=== PATIENT | male | born 1970 | race Caucasian/White ===

== ENCOUNTER 2022-08-09 18:26 | Emergency (ER) | payer OTHER, SELFPAY ==
[2022-08-09 18:38] VITALS: BP 131/80; PULSE 65; RESP 16; TEMP 36.7; O2SAT 97
--- NOTE | 2022-08-09 19:22 | ED.URI ---
HPI - URI/Sore Throat General Chief Complaint: Upper Respiratory Infection Stated Complaint: Swollen Gland Source: patient and RN notes reviewed History of Present Illness HPI Narrative: 52 yo M presents to ED with complaints of sore throat, mostly on right side. Pt states this pain is causing his right ear to hurt. Pt states this has been going on intermittently for the last couple weeks. Pt reports pressure in his sinuses and states he can feel the pressure move when he changes positions while lying down. Denies any fevers, chills, N/V/D, trouble swallowing or breathing, chest pain, or SOB. Related Data Home Medications Medication Instructions Recorded Confirmed amlodipine 5 mg tablet 5 mg PO DAILY 08/09/22 08/09/22 aspirin 81 mg capsule 81 mg PO DAILY 08/09/22 08/09/22 atenolol 50 mg-chlorthalidone 25 1 tablet PO DAILY 08/09/22 08/09/22 mg tablet glipizide 5 mg tablet, extended 5 mg PO DAILY 08/09/22 08/09/22 release 24 hr lisinopril 40 mg tablet 40 mg PO DAILY 08/09/22 08/09/22 lovastatin 20 mg tablet 20 mg PO DAILY 08/09/22 08/09/22 metformin 850 mg tablet 850 mg PO BID 08/09/22 08/09/22 Allergies Allergy/AdvReac Type Severity Reaction Status Date / Time Penicillins Allergy Rash Verified 08/09/22 19:18 piperacillin [From Zosyn] Allergy Rash Verified 08/09/22 19:18 tazobactam [From Zosyn] Allergy Rash Verified 08/09/22 19:18 Review of Systems Review of Systems: CONSTITUTIONAL: Denies fever, chills, or sweats. EYES: Denies visual changes, redness, or discharge. ENT: Reports sore throat and, right ear pain it is pressure. CARDIOVASCULAR: Denies chest pain, palpitations, or edema. RESPIRATORY: Denies cough or dyspnea. GASTROINTESTINAL: Denies abdominal pain, nausea, vomiting, or diarrhea. GENITOURINARY: Denies dysuria or hematuria. SKIN: Denies rash or itching. MUSCULOSKELETAL: Denies back pain, joint pain, or myalgia. NEUROLOGIC: Denies headache, numbness, or weakness. PMFSH Comments At the time of my signature, I reviewed and agree with the nursing past medical, surgical, social, and family history. There is no relevant family history pertinent to the patient complaint. Exam Narrative: GENERAL: This is a well-nourished, well-developed patient, in no apparent distress. HEAD: normocephalic, atraumatic. EYES: PERRL. Sclera clear/white. Vision is grossly intact. EARS: External ears normal, auditory canals clear and without drainage, TMs normal without perforation. Hearing grossly intact. NOSE: External nose normal with no obvious nasal discharge, nares without redness, no rhinorrhea. THROAT: Mucous membranes moist, posterior pharynx clear. Uvula midline. NECK: Right sided lymphadenopathy. CARDIOVASCULAR: Regular rate and rhythm without murmurs, gallops, or rubs. RESPIRATORY: Clear to auscultation. Breath sounds equal bilaterally. No wheezes, rales, or rhonchi. No stridor. GASTROINTESTINAL: Abdomen soft, non-tender, nondistended. Bowel sounds are active. No hepato-splenomegaly, or palpable masses. No guarding. SKIN: warm, intact with no suspicious lesions or rash, good texture and turgor. NEURO: awake, alert, and oriented to person, place and time. There were no obvious focal neurologic abnormalities. Course Course Level of Care: Express Care Visit Vital Signs Vital signs: Vital Signs Temperature 98.0 F 08/09/22 18:38 Pulse Rate 65 08/09/22 18:38 Respiratory Rate 16 08/09/22 18:38 Blood Pressure 131/80 08/09/22 18:38 Pulse Oximetry 97 08/09/22 18:38 Oxygen Delivery Room Air 08/09/22 18:38 Temperature 98.0 F 08/09/22 18:38 Pulse Rate 65 08/09/22 18:38 Respiratory Rate 16 08/09/22 18:38 Blood Pressure 131/80 08/09/22 18:38 Pulse Oximetry 97 08/09/22 18:38 Oxygen Delivery Room Air 08/09/22 18:38 Reviewed MDM - URI/Sore Throat MDM Narrative Medical decision making narrative: Drink plenty of water and get plenty of rest. If you develop any new or w
== END 2022-08-09 19:30 | disposition home or self-care (01) ==
PROVIDERS: Emergency Provider Nurse Practitioner Family; PCP Physician Assistant
DX: J03.90 Acute tonsillitis, unspecified (principal); I48.91 Unspecified atrial fibrillation; E78.00 Pure hypercholesterolemia, unspecified; I10 Essential (primary) hypertension; E11.9 Type 2 diabetes mellitus without complications
CPT/HCPCS: 87081; 87880; 99213; G0463

== ENCOUNTER 2023-12-29 08:22 | Emergency (ER) | payer BC, SELFPAY ==
[2023-12-29 08:34] VITALS: BP 125/72; PULSE 66; RESP 18; TEMP 36.7; O2SAT 98
--- NOTE | 2023-12-29 08:34 | ED.GENADULT ---
HPI - General Adult General Chief complaint: Headache Stated complaint: Migraine/head pain Time Seen by Provider: 12/29/23 08:27 Source: patient, RN notes reviewed and old records reviewed Mode of arrival: ambulatory Limitations: no limitations History of Present Illness HPI narrative: Patient presents to [facility] with complaints of headache x1 week, intractable. He denies any injury or trauma. There is a swollen area to the back of the head, warm to the touch. He reports that this became sensitive last night. He denies any injury or trauma. He does state that he had surgery for an abscess to that same site that is now enlarged approximately 10 years ago. He is very slow to answer questions. States that he has never had headache like this in his life. Affirms history of diabetes and hypertension. Reports compliance with medication. Related Data Home Medications Medication Instructions Recorded Confirmed amlodipine 5 mg tablet 5 mg PO DAILY 08/09/22 12/29/23 aspirin 81 mg capsule 81 mg PO DAILY 08/09/22 12/29/23 atenolol 50 mg-chlorthalidone 25 1 tablet PO DAILY 08/09/22 12/29/23 mg tablet glipizide 5 mg tablet, extended 5 mg PO DAILY 08/09/22 12/29/23 release 24 hr lisinopril 40 mg tablet 40 mg PO DAILY 08/09/22 12/29/23 lovastatin 20 mg tablet 20 mg PO DAILY 08/09/22 12/29/23 metformin 850 mg tablet 850 mg PO BID 08/09/22 12/29/23 Allergies Allergy/AdvReac Type Severity Reaction Status Date / Time Penicillins Allergy Rash Verified 12/29/23 08:34 piperacillin [From Zosyn] Allergy Rash Verified 12/29/23 08:34 tazobactam [From Zosyn] Allergy Rash Verified 12/29/23 08:34 Review of Systems Review of Systems: All systems reviewed & are unremarkable except as noted in HPI and below Constitutional: Constitutional: Reports no additional constitutional complaints ENT: Reports system reviewed and no additional complaints, except as documented Cardiovascular: Cardiovascular: Reports no additional cardiovascular complaints Respiratory: Respiratory: Reports no additional respiratory complaints Gastrointestinal: Gastrointestinal: Reports no additional gastrointestinal complaints Integumentary/Breasts: Comments: warmth and tenderness to back of scalp Neurologic: Reports dizziness, Reports headache(s) and Reports lack of coordination PMFSH Comments At the time of my signature, I reviewed and agree with the nursing past medical, surgical, social, and family history. There is no relevant family history pertinent to the patient complaint. Exam Const: General: cooperative, no acute distress, alert, awake, ill appearing, tired appearing, uncomfortable and other ( slow to respond to answering questions, but able to answer them appropriat) Orientation/consciousness: oriented to person, oriented to place and oriented to time HENMT: Head: scalp tenderness Head images: 1. erythema. tenderness, warmth, and induration Neck: Neck images: 1. erythema, warmth, tenderness and induration. unable to look down secondary to pain and swelling Resp: Effort & Inspection: normal respiratory effort and able to speak in complete sentences Auscultation: clear to auscultation bilaterally, no crackles, no rales, no rhonchi and no wheezes Cardio: Palpation: normal PMI Rate: regular rate Rhythm: regular rhythm Heart sounds: S1 normal heart sound present and S2 normal heart sound present Neuro: General: oriented to person, oriented to place and oriented to time Cranial nerves: Yes CN's II-XII intact bilaterally Speech: Other speech findings present (Neuro) ( slow to respond to questions) Gait exam (Neuro): Staggering gait present Psych: Appearance: grossly normal Thought process: Normal thought process present Insight: Good insight present (Psych) Judgement: Good judgement present (Psych) Course Course Emergency Course: patient to emergency room, [facility], via private car. He signed AMA form, as
[2023-12-29 08:35] VITALS: BP 125/72; PULSE 66; RESP 18; TEMP 36.7; O2SAT 98
[2023-12-29 08:42] LABS: Glucose Point of Care 214 mg/dl (65-105)
== END 2023-12-29 08:53 | disposition short-term general hospital (02) ==
PROVIDERS: Emergency Provider Nurse Practitioner Family; PCP Physician Assistant
DX: L02.811 Cutaneous abscess of head [any part, except face] (principal); L02.11 Cutaneous abscess of neck; E11.9 Type 2 diabetes mellitus without complications; I10 Essential (primary) hypertension; I48.91 Unspecified atrial fibrillation; E78.00 Pure hypercholesterolemia, unspecified; Z79.82 Long term (current) use of aspirin
CPT/HCPCS: 82948; 99213; G0463

== ENCOUNTER 2024-05-21 11:00 | Emergency (ER) | payer OTHER, BC, SELFPAY ==
[2024-05-21 11:05] VITALS: BP 112/72; PULSE 62; RESP 16; TEMP 36.9; O2SAT 99
--- NOTE | 2024-05-21 11:40 | ED.BACK ---
HPI - Back Pain/Injury General Chief Complaint: Back Pain/Injury Stated Complaint: WC/ muscle spasms back Time Seen by Provider: 05/21/24 11:22 Source: patient and RN notes reviewed Mode of arrival: ambulatory Limitations: no limitations History of Present Illness HPI Narrative: Patient presents today complaining of bilateral lower back pain and right-sided mid back pain just under the scapula. Pain has been present for 4 days. 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 The seats in his loaner truck, he reports, are very worn and bounce significantly more than his normal truck, when riding. He road in this lunar truck for 1 week And has been it back in his own truck for the past 2 days. He believes that this significant bouncing in the [employer] truck has led to his back pain. He denies radiation of his pain. Denies numbness or tingling in the extremities. Denies loss of bowel or bladder control. He has not tried any [id number] treatment prior to arrival. Currently rates his pain 5/10. Related Data Home Medications Medication Instructions Recorded Confirmed amlodipine 5 mg tablet 5 mg PO DAILY 08/09/22 05/21/24 aspirin 81 mg capsule 81 mg PO DAILY 08/09/22 05/21/24 atenolol 50 mg-chlorthalidone 25 1 tablet PO DAILY 08/09/22 05/21/24 mg tablet glipizide 5 mg tablet, extended 5 mg PO DAILY 08/09/22 05/21/24 release 24 hr lisinopril 40 mg tablet 40 mg PO DAILY 08/09/22 05/21/24 lovastatin 20 mg tablet 20 mg PO DAILY 08/09/22 05/21/24 metformin 1,000 mg tablet 1,000 mg PO BID 05/21/24 05/21/24 Allergies Allergy/AdvReac Type Severity Reaction Status Date / Time Penicillins Allergy Rash Verified 12/29/23 08:34 piperacillin [From Zosyn] Allergy Rash Verified 12/29/23 08:34 tazobactam [From Zosyn] Allergy Rash Verified 12/29/23 08:34 Review of Systems Review of Systems: CONSTITUTIONAL: Denies body aches, fever, chills, or sweats. EYES: Denies visual changes, redness, or discharge. ENT: Denies rhinorrhea, congestion, sore throat, or otalgia. CARDIOVASCULAR: Denies chest pain, palpitations, or edema. RESPIRATORY: Denies cough or dyspnea. GASTROINTESTINAL: Denies abdominal pain, nausea, vomiting, or diarrhea. GENITOURINARY: Denies dysuria or hematuria. SKIN: Denies rash, itching, or wounds. MUSCULOSKELETAL: Denies joint pain, or myalgia.+ back pain NEUROLOGIC: Denies headache, numbness, tingling, or weakness. PSYCH: Denies depression or anxiety. [facility] Past Medical History Medical History (Updated 05/21/24 @ 13:52 by Dee Stephens, [employer], ) Diabetes High cholesterol Hypertension Comments At time of signature, I have reviewed and agree with nursing past medical, surgical, social and family history unless otherwise noted. Please see nursing chart for further information. There is no relevant family history pertinent to the presenting complaint Exam Narrative: GENERAL: Well-appearing, well-nourished, and in no acute distress. HEAD: Normocephalic, atraumatic. EYES: EOMI. No redness or drainage. Conjunctivae normal. ENT: Mucous membranes pink and moist. NECK: Normal AROM. CHEST: No respiratory distress. MUSCULOSKELETAL: No bony tenderness of the thoracic or lumbar spine. Bilateral lower lumbar paraspinal muscle tenderness that does not extend to the SI joints. Palpable spasm noted on the left. Patient also has tenderness to the right midthoracic paraspinal muscles, just under the scapula. Some mild pain increased to this area with deep breath. Distal sensation intact in all 4 extremities. Capillary refill normal. Pedal and radial pulses normal. Bilateral upper and lower extremity strength 5/5. EXTREMITIES: Normal range of motion. No edema. SKIN: Warm, dry, no rash. Capillary refill normal. Normal skin turgor. NEURO: No focal deficits. Alert and oriented x3. Gait steady. PSYCH: Normal affect. No signs of depression or anxiety. Course Course Level of Care: Express Care Visit Vital Signs Vital signs: Vital Signs Temperature 98.5 F 05/21/24 11:05 Pulse Rate 62 05/21/24 11:05 Respiratory Rate 16 05/21/24 11:05 Blood Pressure 112/72 05/21/24 11:05 Pulse Oximetry 99 05/21/24 11:05 Oxygen Delivery Room Air 05/21/24 11:05 Temperature 98.5 F 05/21/24 11:05 Pulse Rate 62 05/21/24 11:05 Respiratory Rate 16 05/21/24 11:05 Blood Pressure 112/72 05/21/24 11:05 Pulse Oximetry 99 05/21/24 11:05 Oxygen Delivery Room Air 05/21/24 11:05 Reviewed MDM - Back Pain/Injury MDM Narrative Medical decision making narrative: Patient has strained his thoracic and lumbar areas. He has declined muscle relaxer. States steroid has raised his blood sugar too high in the past and has declined this as well. Instructed patient to take an anti-inflammatory and use [id number] topical lidocaine patches to help with his discomfort. He is not having any midline tenderness at this time. Anticipatory guidance given. Differential Diagnosis Differential diagnosis: Likely lumbar radiculopathy, sciatica, strain of lumbar region and other (Strain of thoracic region, muscle spasm) Critical Care Time Critical Care Time Critical Care Time: No Discharge Plan Discharge Clinical Impression: Back strain Qualifiers: Encounter type: initial encounter Qualified Code(s): S39.012A - Strain of muscle, fascia and tendon of lower back, initial encounter Patient Disposition: Home, Self-Care Condition: Stable Instructions: Low Back Strain (ED) Additional Instructions: You have been evaluated today at [facility]. Please start an anti-inflammatory such as Aleve or ibuprofen for your pain. Use [id number] lidocaine patches on your back or heating pad, but do not use them at the same time. Go to the ER if symptoms worsen to include numbness or tingling in your legs or genitalia, loss of bowel or bladder control. Please follow-up with your PCP or Occupational Medicine for further evaluation. Follow-up with your employer regarding workman's compensation/return to work, as this cannot be handled at [facility]. Prescriptions: No Action glipizide 5 mg tablet extended release 24hr 5 mg PO DAILY atenolol-chlorthalidone 50-25 mg tablet 1 tablet PO DAILY amlodipine 5 mg tablet 5 mg PO DAILY lovastatin 20 mg tablet 20 mg PO DAILY lisinopril 40 mg tablet 40 mg PO DAILY aspirin 81 mg Capsule 81 mg PO DAILY metformin 1,000 mg tablet 1,000 mg PO BID Follow-up/Referrals: Misha,YANETH Yu [Primary Care Provider] - Time of Disposition: 11:43
== END 2024-05-21 11:48 | disposition home or self-care (01) ==
PROVIDERS: Emergency Provider Nurse Practitioner; PCP Physician Assistant
DX: S39.012A Strain of muscle, fascia and tendon of lower back, initial encounter (principal); V68.5XXA Driver of heavy transport vehicle injured in noncollision transport accident in traffic accident, initial encounter; Y99.0 Civilian activity done for income or pay; E11.9 Type 2 diabetes mellitus without complications; I10 Essential (primary) hypertension; E78.00 Pure hypercholesterolemia, unspecified; Z79.82 Long term (current) use of aspirin
CPT/HCPCS: 99212; G0463